=== PATIENT | female | born 1985 | race African-American/Black ===

== ENCOUNTER 2018-08-06 13:09 | Emergency (ER) | payer OTHER ==
[~2018-08-06] VITALS: Ht 160 cm; Wt 59.9 kg
[~2018-08-06 13:09] MED LIST: KEFLEX500 MG ORAL; NITROFURANTOIN100 M2 ORAL; ZOFRAN ODT4 MG ORAL
[2018-08-06] MEDS ORDERED: NORCO 5-325 TA1 EACH ORAL (13:32)
--- NOTE | 2018-08-06 13:42 | NUR ---
ED Nurse Note: patient walked into ED c/o headache for 9 days with right ear ringing and pain attempted to collect urine sample
[2018-08-06 13:43] VITALS: BP 147/90
[2018-08-06] MEDS ORDERED: Ketorolac 30mg Inj IM ONE (13:45)
--- NOTE | 2018-08-06 13:46 | Emergency Room Report ---
History of Present Illness General Chief Complaint: Headache Source: Patient Present Illness HPI 33-year-old female patient presents the ER complaining of headache for the past 9 days. Patient reports that the headache is on the right side of her head and neck. Denies history of migraines. States she has been taking Irvine for pain relief. States she received a Irvine from her "physician who retired". Denies neck stiffness. Reports hx of similar RAMIREZ symptoms in the past, states believed it was previously related to control medications, states longer taking those control medications, states she currently has an copper IUD.. Denies vomiting or vision changes. Reports "lots of stress" at home. Denies dysuria, hematuria. Denies other aggravating or relieving factors. Denies syncopal episodes. Allergies: Coded Allergies: No Known Allergies (Unverified , 01/29/15) Patient History Past Medical History: see triage record Last Menstrual Period: 07/10/18 Reviewed Nursing Documentation: PMH: Agreed; PSxH: Agreed Nursing Documentation-PMH Past Medical History: No History, Except For Hx Hypertension: Yes Review of Systems All Other Systems: negative except mentioned in HPI Physical Exam Vital Signs Date Time Temp Pulse Resp B/P (MAP) Pulse Ox O2 Delivery O2 Flow Rate FiO2 08/06/18 13:29 98.6 93 18 147/90 98 Room Air Sp02 EP Interpretation: reviewed, normal General Appearance: well appearing, no apparent distress, alert, GCS 15, non- toxic Head: normocephalic, atraumatic Eyes: bilateral eye normal inspection, bilateral eye PERRL ENT: hearing grossly normal, normal pharynx, no angioedema, normal voice, TMs + canals normal, uvula midline, moist mucus membranes Neck: full range of motion, no meningismus, no bony tend Respiratory: lungs clear, normal breath sounds, no rhonchi, no respiratory distress, no accessory muscle use, no wheezing, speaking full sentences Cardiovascular #1: regular rate, rhythm, no edema Gastrointestinal: non tender, soft, no mass, non-distended, no guarding, no rebound Genitourinary: no CVA tenderness Musculoskeletal: back normal, digits/nails normal, gait/station normal, normal range of motion, non-tender Neurologic: alert, oriented x3, responsive, stockroom coordinator III-XII nml as tested, motor strength/tone normal, sensory intact, cerebellar normal, normal gait, speech normal, other - Negative Kernig, negative Brudzinski Psychiatric: mood/affect normal Skin: no rash Lymphatic: no adenopathy Medical Decision Making PA Attestation Dr. Briones is my supervising Physician whom patient management has been discussed with. Diagnostic Impression: Primary Impression: Headache ER Course Pt presents to ED c/o headache. DDX considered but are not limited to migraine, cluster RAMIREZ, tension RAMIREZ, meningitis, ICH, meningitis, HTN, influenza, UTI. No focal neuro deficits, cranial nerves intact as tested, denies worse headache of life, low suspicion for SAH, does not require CT head at this time. Negative Kernig, negative Brudzinski, patient afebrile, low suspicion for meningitis. VITAL SIGNS are WNL, patient is afebrile ER COURSE Provide patient with Reglan, Benadryl, Toradol for headache symptoms. UA shows no signs of infection, urine negative. Discussed results with patient. Follow-up with neurology to discuss headache symptoms. Patient reports pain improved. Patient is AOx3, neurologically intact, nontoxic appearing, and ambulatory. ER precautions given. DISCHARGE: -Rx provided Excedrin Rx provided for Robaxin At this time pt is stable for d/c to home. Patient is resting comfortably, in no acute distress, nontoxic appearing, talking and smiling. Will provide with patient care instructions and any necessary prescriptions. Patient to take medication as instructed. Care plan and follow-up instructions provided. Patient questions asked and answered. Patient instructed to follow-up with primary care provider in the next 3 days and discuss further referral with PCP to neurologist. ER precautions given. Patient instructed to return to ER immediately for any new or worsening of symptoms including but not limited to fever, neck stiffness , vision changes, and neurological symptoms. - Please note that this Emergency Department Report was dictated using [employer] support technology software, occasionally this can lead to erroneous entry secondary to interpretation by the dictation equipment. Labs Test 08/06/18 13:46 Urine Color Pale yellow Urine Appearance Clear Urine pH 6.5 (4.5-8.0) Urine Specific [place] 1.015 (1.005-1.035) Urine Protein Negative (NEGATIVE) Urine Glucose (UA) Negative (NEGATIVE) Urine Ketones Negative (NEGATIVE) Urine Blood Negative (NEGATIVE) Urine Nitrite Negative (NEGATIVE) Urine Bilirubin Negative (NEGATIVE) Urine Urobilinogen Normal MG/DL (0.0-1.0) Urine Leukocyte Esterase 1+ (NEGATIVE) Urine RBC 0 /HPF (0 - 2) Urine WBC 0-2 /HPF (0 - 2) Urine Squamous Epithelial Cells Occasional /LPF Urine Bacteria Occasional /HPF (NONE) Urine HCG, Qualitative Negative (NEGATIVE) Last Vital Signs Date Time Temp Pulse Resp B/P (MAP) Pulse Ox O2 Delivery O2 Flow Rate FiO2 08/06/18 13:43 98.6 93 18 147/90 98 Room Air Status: improved Disposition: HOME, SELF-CARE Condition: Stable Scripts Aspirin/Acetaminophen/Caffeine (EXCEDRIN MIGRAINE CAPLET) 1 Each Tablet 1 EACH PO TID, #24 TAB Prov: Keyon Avila 08/06/18 Methocarbamol* (ROBAXIN*) 500 Mg Tablet 500 MG PO TID, #21 TAB 0 Refills Prov: Keyon Avila 08/06/18 Referrals: [facility],REFERRING (PCP) Patient Instructions: General Headache Without Cause Additional Instructions: Followup with primary care provider in 3 -5 days. Follow-up with neurologist for headache symptoms. Take medications as directed. Patient questions asked and answered. ER precautions given, patient instructed to return to ER immediately for any new or worsening of symptoms. Keyon Avila Aug 06, 2018 13:46
[2018-08-06 14:01] LABS: APPEARANCE,URINE CLEAR; BILIRUBIN, URINE NEGATIVE (NEGATIVE); COLOR,URINE PALE YELLOW; GLUCOSE, URINE (UA) NEGATIVE (NEGATIVE); KETONES,URINE NEGATIVE (NEGATIVE); LEUKOCYTE ESTERASE ,URINE 1+ (NEGATIVE); NITRITE,URINE NEGATIVE (NEGATIVE); PH,URINE 6.5 (4.5-8.0); PROTEIN,URINE NEGATIVE (NEGATIVE); UROBILINOGEN,URINE NORMAL MG/DL (0.0-1.0)
[2018-08-06] MEDS ORDERED: EXCEDRIN MIGRA1 EAC1 PO (14:36)
[2018-08-06] MEDS ORDERED: ROBAXIN500 MG PO (14:36)
[2018-08-06 15:11] VITALS: BP 147/90
== END 2018-08-06 14:45 | disposition home or self-care (01) ==
LOC: EMR 13:31
DX: R51 Headache (principal); I10 Essential (primary) hypertension
CPT/HCPCS: 81003; 81025; 96372; 99283; J1885